=== PATIENT | female | born 1980 | race Caucasian/White ===

== ENCOUNTER → 2023-01-16 10:34 | Outpatient (CLI) | payer BC, SELFPAY ==
--- NOTE | ~2023-01-16 | MR_ITS ---
MRI of the left shoulder Technique: Axial proton-density fat-sat images, coronal proton density fat-sat and T2 fat-sat images, and sagittal T1-weighted and T2 fat-sat images were acquired. Clinical History: Pain Findings: No significant AC joint degenerative change present. Coracoclavicular, coracoacromial, and coracohumeral ligaments are intact. There is mild infiltration of subcoracoid fat. Supraspinatus and infraspinatus tendons are intact, without partial or full-thickness tear. Subscapul heather tendon is intact with mild tendinosis. Tendon of long head of the biceps is intact. Glenoid labrum is intact, without evidence of tear. There is thickening and increased signal of the inferior glenohumeral ligament. No effusion or degene rative change of the glenohumeral joint. No fluid distention of the subacromial/subdeltoid bursa. No muscle atrophy or edema. Impression: Findings suggestive of adhesive capsulitis. Mild subscapularis tendinosis. Reviewed, dictated and finalized at [facility]. Impression: Findings suggestive of adhesive capsulitis. Mild subscapularis tendinosis.
== END ==
PROVIDERS: PCP Physician Assistant; Visit Provider Nurse Practitioner
DX: M25.512 Pain in left shoulder (principal)
CPT/HCPCS: 73221

== ENCOUNTER 2023-05-22 09:25 | Outpatient (CLI) | payer BC, SELFPAY ==
--- NOTE | 2023-05-22 10:24 | ECG_ITS ---
Measurements Intervals [place] Rate: 85 P: 62 PA: 147 QRS: 63 QRSD: 86 T: 55 QT: 380 QTc: 452 Interpretive Statements SINUS RHYTHM NORMAL ECG NO PREVIOUS ECG AVAILABLE FOR COMPARISON Electronically Signed On 05-22-2023 10:44:14 CDT by Jairo Caldwell D.O.
[2023-05-22 10:41] LABS: Anion Gap 9 mmol/L (8-16); Blood Urea Nitrogen 17 mg/dL (7-17); Calcium 9.3 mg/dL (8.4-10.2); Carbon Dioxide 25 mmol/L (22-30); Chloride 107 mmol/L (98-107); Estimated Glomerular Filt Rate > 60; Glucose 103 mg/dL (65-110); Potassium 4.2 mmol/L (3.4-5.0); Sodium 141 mmol/L (137-145)
== END 2023-05-22 09:26 | disposition home or self-care (01) ==
PROVIDERS: PCP Physician Assistant; Visit Provider Anesthesiology
DX: E11.9 Type 2 diabetes mellitus without complications (principal)
CPT/HCPCS: 36415; 80048; 93005

== ENCOUNTER 2023-05-24 00:47 | Day surgery (SDC) | payer BC, SELFPAY ==
[2023-05-17 16:27] VITALS: BMI 20.5
--- NOTE | 2023-05-17 17:10 | PC.NURSE ---
Report to the Outpatient Waiting Room, entrance under the green pavilion located off [facility], at 1130 on 05-24-23. Planned Procedure Time: 1330. Time changes happen often and if your time is changed the preop area will call you the afternoon before. - You and your visitor will be asked to self-screen and do not enter if you have any COVID symptoms. - A mask is optional within the hospital at this time. Patients may have clear liquids (water, carbonated beverages, clear teas, apple juice) until 3 hours prior to surgery with a maximum of 20 ounces. 1030 - No food from midnight until time of surgery - Infants may have breast milk until 4 hours before surgery, formula 6 hours prior to surgery. - Children will be allowed to drink immediately following surgery. If applicable, please bring a bottle or sippy cup to assist with drinking. Juice, water, soda, and popsicles are readily available. For infants on formula, please bring formula the day of surgery. Pacifiers are allowed. Take the following medications with a SIP of water the morning of surgery: amlodipine, levothyroxine, control DO NOT STOP ANY OF YOUR OTHER PRESCRIPTION MEDICATIONS PRIOR TO SURGERY ?EXCEPT THE FOLLOWING Medications to discontinue per physician: N/A Please no make-up, nail faroese, hairspray, perfume, deodorant, or body powder the day of surgery. No jewelry (including any body piercings) or valuables the day of surgery, leave them at home. Please take a shower or bath the night before, or the morning of, surgery with an antibacterial soap. Wear comfortable, loose fitting clothing. Children are encouraged to wear pajamas. - Jewelry must be removed prior to entering the operating room. Rings and piercings that are not removed may be cut off. - The hospital will not accept responsibility for valuables. - Please leave all valuables, including medications, at home the day of surgery. If you are going home after surgery, a licensed lyft driver must drive you home. - NO public transportation without another adult if you receive anesthesia. - We recommend that an adult stay with you for 24 hours following discharge. - We also recommend that you do not drive, make important decision, drink alcoholic beverages, or take any drugs that were not prescribed by your health care provider for at least 24 hours after your discharge time. For Pediatric surgeries, we recommend two adults accompany the child home. Follow any additional instructions given to you from your surgeon. If you or anyone in your household have experienced Covid symptoms in the past week, please notify your surgeon or the nurse liaison at the phone number below for possible testing. Telephone instructions given to Luiza Yeh and asked if any additional questions and then verbalized understanding. Patient advised to call surgeon office or pre surgery nurse liaison [phone] if any additional questions.
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
[2023-05-24 11:38] VITALS: BP 118/81; PULSE 102; RESP 16; TEMP 37.1; O2SAT 100
== END 2023-05-24 11:40 | disposition home or self-care (01) ==
PROVIDERS: PCP Physician Assistant; Visit Provider Orthopaedic Surgery
DX: M75.02 Adhesive capsulitis of left shoulder (principal); Z53.8 Procedure and treatment not carried out for other reasons
CPT/HCPCS: 99212; A9270; G0463; J0690; J1885

== ENCOUNTER 2023-06-07 00:56 | Day surgery (SDC) | payer BC, SELFPAY ==
[2023-05-31 14:25] VITALS: BMI 20.1
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
[2023-06-07] VITALS (9 sets, daily range): BP systolic 92–126; BP diastolic 63–86; PULSE 87–99; RESP 10–20; TEMP 36.4–36.8; O2SAT 100
[2023-06-07] MEDS: ACETAMINOPHEN 500 MG TABLET 1000 MG PO (07:00)
[2023-06-07] MEDS: LACTATED RINGERS 1,000 ML 30 ML IV CONT (07:00)
[2023-06-07] MEDS: KETOROLAC 15 MG/ML VIAL (*BKC) IV PUSH ×2 (07:00→09:10)
--- NOTE | 2023-06-07 07:09 | WPDHPUPDATE1 ---
History and Physical Update Update Date/Time: 06/07/23 07:09 History and Physical has been reviewed, including an updated exam of the patient. There are NO changes in the patient's condition. Risks, benefits, and alternatives have been discussed and questions answered. Patient agrees to proceed with procedure.
[2023-06-07 07:14] LABS: Glucose Point of Care 104 mg/dl (65-105)
--- NOTE | 2023-06-07 07:21 | WPDANESEPPF ---
Anes - Initial Pre Proc Eval Procedure: Operation Date: 06/07/23 08:30 Proposed Procedures p Left Shoulder Examination Under Anesthesia with Injection - Dre Leyva MD Date/Time: 06/07/23 07:21 Surgeon: Dre Leyva MD Pre Op Diagnosis: Lt Frozen Shoulder Patient Data Age: 43 Gender: F Height: 1.57 m Weight: 50 kg Allergies Allergy/AdvReac Type Severity Reaction Status Date / Time codeine Allergy Mild headache, Verified 05/31/23 14:24 dizziness grass pollen Allergy Mild Hives Verified 05/31/23 14:24 Home Medications Medication Instructions Recorded Confirmed Type amlodipine 5 mg tablet 5 mg PO DAILY 02/10/23 05/31/23 History levothyroxine 13 mcg capsule 13 mcg PO DAILY 02/10/23 05/31/23 History norethindrone (contraceptive) 0.35 0.35 mg PO DAILY 02/10/23 05/31/23 History mg tablet tirzepatide 5 mg/0.5 mL 5 mg subcut WEEKLY 05/17/23 05/31/23 History subcutaneous pen injector (Mounjaro) Laboratory Tests 06/07/23 07:07 POC Capillary Glucose 104 mg/dl (65-105) Patient hx anesthesia problems: none Family hx anesthesia problems: none Results Review: All pre-operative results and documents have been reviewed as part of the pre-operative evaluation. [facility] Past Medical History Medical History Adhesive capsulitis of left shoulder Diabetes Heart murmur Raynauds disease Tachycardia Surgical History Surgical History History of oral surgery Family History Family History Mother Diabetes mellitus Hemochromatosis Father Diabetes mellitus Hypertension Grandparent Diabetes mellitus Lung cancer COPD (chronic obstructive pulmonary disease) Social History Social History Smoking status: Never smoker Alcohol intake: former Alcohol use details: NOVEMBER 2009 LAST USE Substance use: never Substance use type: does not use Lack of Transportation: No Lack of Food: Never True Current Housing: I Have Housing Concerned About Future Housing: No Difficulty Paying Gas/Electric Bills: No Difficulty Paying for Meds: No Currently Unemployed: No Education: Bachelor's Degree Difficulty w/ Childcare or Family Care: No Living arrangements: alone Occupation/Education: occupation 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 Informed Consent: The patient's anesthetic plan and its attendant risks and benefits were discussed with the patient/family/POA. Questions were solicited and answers provided to the satisfaction of the patient/family/POA.
[2023-06-07] MEDS: TRIAMCINOLONE ACET INJ SUSP 50 MG/5 ML VIAL IM (08:30)
[2023-06-07] MEDS: LIDOCAINE HCL 1% LOCAL INJ 10 ML VIAL 2 ML INFILTRATE (08:31)
--- NOTE | 2023-06-07 08:41 | W.PM.PROC2 ---
Procedure Note - Detailed Date of Procedure 06/07/23 Pre-op Diagnosis Lt Frozen Shoulder Post-op Diagnosis Same Procedure Performed Evaluation under anesthesia left shoulder with manipulation and intra-articular injection Surgeon Dre Leyva MD Anesthesia General Description of Procedure The patient was identified in proper site identified. She was taken to the operating room and left on the patient gurney. After general anesthetic induction the shoulder range of motion was evaluated. A gentle manipulation was carried out and post manipulation range is recorded. These are at the bottom of the note in degrees. Following the shoulder manipulation, the shoulder was injected intra-articularly with 2 milliliters 1% lidocaine and 20 milligrams of Kenalog without incident. It was applied. She tolerated procedure well. She was taken to recovery in stable condition. There were no known intraoperative complications. Pre Post Elevation 130 180 External rotation 30 90 Internal rotation 30 70 Estimated Blood Loss 0 Drains No Packing No Pathology Other (NA) Complications No immediate complications Condition Stable Disposition PACU [facility] Billing Surgery - Charge Forward: Surgery Billing ([id number]; [id number])
[2023-06-07 09:00] LABS: Glucose Point of Care 101 mg/dl (65-105)
[2023-06-07] MEDS: fentaNYL CITRATE INJ (*CRX) 100 MCG/2 ML VIAL 25 MCG IV PUSH ×3 (09:23→09:36)
[2023-06-07] MEDS: traMADol HCL (*CRX) 50 MG TABLET PO (10:27)
== END 2023-06-07 10:52 | disposition home or self-care (01) ==
PROVIDERS: Visit Provider Orthopaedic Surgery
PROC: (CPT 23700; principal; 2023-06-07 08:30)
DX: M75.02 Adhesive capsulitis of left shoulder (principal); E11.9 Type 2 diabetes mellitus without complications; I73.00 Raynaud's syndrome without gangrene
CPT/HCPCS: 23700; 82948; A9270; J0690; J1885; J2250; J3010; J3301; J7120

== ENCOUNTER 2023-09-27 07:42 | Outpatient (CLI) | payer BC, SELFPAY ==
--- NOTE | ~2023-09-27 | MR_ITS ---
EXAMINATION: MR shoulder LT wo con DATE: 09/27/2023 08:28 INDICATION: Adhesive capsulitis TECHNIQUE: Magnetic resonance imaging (MRI) of the left shoulder was performed without intravenous co ntrast. Sequences included axial PD-weighted FS FSE, coronal oblique PD-weighted FS FSE, coronal obli que T2-weighted FS FSE, sagittal PD-weighted FS FSE, and sagittal T1-weighted SE. COMPARISON: None. FINDINGS: Coracoacromial arch: The acromion undersurface is curved in morphology (type II). The coracoacromial ligament is normal. M ild acromioclavicular osteoarthritis. Rotator cuff: Mild supraspinatus and infraspinatus tendinopathy without discrete tear. Teres minor and subscapulari s tendons are normal. Normal rotator cuff muscle bulk and signal. Biceps tendon, glenoid labrum and glenohumeral cartilage: Long head of the biceps tendon is normal. Glenoid labrum is normal. Glenohumeral cartilage is normal. Fluid: Physiologic amount of fluid in the glenohumeral joint and biceps tendon sheath. No loose osteochondr al bodies. Mild increased fluid signal in the subacromial/subdeltoid bursa consistent with mild bursi tis. Bones: Normal marrow signal with no edema, fracture or abnormal marrow replacing process. IMPRESSION: 1. Mild supraspinatus and infraspinatus tendinopathy without tear. 2. Mild subacromial/subdeltoid bursitis. Reviewed, dictated and finalized at location B.
== END 2023-09-27 07:43 | disposition home or self-care (01) ==
PROVIDERS: PCP Physician Assistant; Visit Provider Physician Assistant Surgical
DX: M75.02 Adhesive capsulitis of left shoulder (principal)
CPT/HCPCS: 73221

== ENCOUNTER 2023-11-04 15:30 | Outpatient (CLI) | payer BC, SELFPAY ==
[2023-11-04 18:31] LABS: Anion Gap 10 mmol/L (4-12); Blood Urea Nitrogen 21 mg/dL (7-17); Calcium 9.8 mg/dL (8.4-10.2); Carbon Dioxide 24 mmol/L (22-30); Chloride 110 mmol/L (98-107); Estimated Glomerular Filt Rate > 60; Glucose 121 mg/dL (65-110); Potassium 3.8 mmol/L (3.4-5.0); Sodium 144 mmol/L (137-145)
== END 2023-11-04 15:31 | disposition home or self-care (01) ==
LOC: ANHLAB 15:31
PROVIDERS: PCP Physician Assistant; Visit Provider Anesthesiology
DX: Z01.818 Encounter for other preprocedural examination (principal); E11.9 Type 2 diabetes mellitus without complications
CPT/HCPCS: 36415; 80048

== ENCOUNTER 2023-11-11 00:13 | Day surgery (SDC) | payer BC, SELFPAY ==
[2023-11-03 15:25] VITALS: BMI 21.4
--- NOTE | 2023-11-03 15:33 | PC.NURSE ---
Report to the Outpatient Waiting Room, entrance under the green pavilion located off [facility], at time 10:30 on date 11/11/23. Planned Procedure Time: 12:30. Time changes happen often and if your time is changed the preop area will call you the afternoon before. - You and your visitor will be asked to self-screen and do not enter if you have any COVID symptoms. - A mask is optional within the hospital at this time. Patients may have clear liquids (water, carbonated beverages, clear teas, apple juice) until 3 hours prior to surgery (9:30) with a maximum of 20 ounces. - No food from midnight until time of surgery Take the following medications with a SIP of water the morning of surgery: AMLODIPINE, LEVOTHYROXINE, CONTRACEPTIVE DO NOT STOP ANY OF YOUR OTHER PRESCRIPTION MEDICATIONS PRIOR TO SURGERY ?EXCEPT THE FOLLOWING Medications to discontinue per physician: IBUPROFEN Date to take last dose: 11/03/23 Please no make-up, nail cambodian, hairspray, perfume, deodorant, or body powder the day of surgery. No jewelry (including any body piercings) or valuables the day of surgery, leave them at home. Please take a shower or bath the night before, or the morning of, surgery with an antibacterial soap. Wear comfortable, loose fitting clothing. - Jewelry must be removed prior to entering the operating room. Rings and piercings that are not removed may be cut off. - The hospital will not accept responsibility for valuables. - Please leave all valuables, including medications, at home the day of surgery. If you are going home after surgery, a licensed skip load driver must drive you home. - NO public transportation without another adult if you receive anesthesia. - We recommend that an adult stay with you for 24 hours following discharge. - We also recommend that you do not drive, make important decision, drink alcoholic beverages, or take any drugs that were not prescribed by your health care provider for at least 24 hours after your discharge time. Follow any additional instructions given to you from your surgeon. If you or anyone in your household have experienced Covid symptoms in the past week, please notify your surgeon or the nurse liaison at the phone number below for possible testing. Telephone instructions given to PT Adriano HAMPTON and asked if any additional questions and then verbalized understanding. Patient advised to call surgeon office or pre surgery nurse liaison [phone] if any additional questions.
[2023-11-11] VITALS (8 sets, daily range): BP systolic 118–137; BP diastolic 79–88; PULSE 88–101; RESP 9–20; TEMP 36.3–36.7; O2SAT 99–100
--- NOTE | 2023-11-11 10:32 | WPDHPUPDATE1 ---
History and Physical Update Update Date/Time: 11/11/23 10:32 History and Physical has been reviewed, including an updated exam of the patient. There are NO changes in the patient's condition. Risks, benefits, and alternatives have been discussed and questions answered. Patient agrees to proceed with procedure.
[2023-11-11] MEDS: ACETAMINOPHEN 500 MG TABLET 1000 MG PO (11:15)
[2023-11-11] MEDS: LACTATED RINGERS 1,000 ML 30 ML IV CONT ×2 (11:30→14:59)
[2023-11-11 11:38] LABS: Glucose Point of Care 96 mg/dl (65-105)
[2023-11-11] MEDS: KETOROLAC 15 MG/ML VIAL (*BKC) IV PUSH (12:02)
--- NOTE | 2023-11-11 12:04 | WPDANESEPPF ---
Anes - Initial Pre Proc Eval Procedure: Operation Date: 11/11/23 12:30 Proposed Procedures p Left Shoulder Arthroscopic Capsular Release - Jeet Poe MD Date/Time: 11/11/23 12:04 Surgeon: Jeet Poe MD Pre Op Diagnosis: L shoulder adhesive capsulitis Patient Data Age: 43 Gender: F Height: 1.57 m Weight: 52.6 kg Last Vital Signs Temp 98.1 F 11/11/23 11:57 Pulse 88 11/11/23 11:57 Resp 14 11/11/23 11:57 BP 118/79 11/11/23 11:57 Pulse Ox 100 11/11/23 11:57 O2 Del Method Room Air 11/11/23 11:57 Allergies Allergy/AdvReac Type Severity Reaction Status Date / Time grass pollen Allergy Mild Hives Verified 11/11/23 11:57 codeine AdvReac Mild headache, Verified 11/11/23 11:57 dizziness Home Medications Medication Instructions Recorded Confirmed Type amlodipine 5 mg tablet 5 mg PO DAILY 02/10/23 11/11/23 History levothyroxine 13 mcg capsule 13 mcg PO DAILY 02/10/23 11/11/23 History norethindrone (contraceptive) 0.35 0.35 mg PO DAILY 02/10/23 11/11/23 History mg tablet tirzepatide 5 mg/0.5 mL 5 mg subcut WEEKLY 05/17/23 11/11/23 History subcutaneous pen injector (Mounjaro) ibuprofen 800 mg tablet 800 mg PO TID #90 tabs 06/07/23 11/11/23 Rx fluticasone propionate 50 1 spray intranasal DAILY 09/29/23 11/11/23 History mcg/actuation nasal spray,suspension (Flonase Allergy Relief) loratadine 10 mg tablet (Allergy 10 mg PO DAILY 09/29/23 11/11/23 History Relief (loratadine)) omeprazole 20 mg capsule,delayed 20 mg PO DAILY 11/03/23 11/11/23 History release Laboratory Tests 11/11/23 11:35 POC Capillary Glucose 96 mg/dl (65-105) Patient hx anesthesia problems: other (Pt reports that w prev GA, she had 1-2 days post op where she has no recollection of events. ) Family hx anesthesia problems: none Results Review: All pre-operative results and documents have been reviewed as part of the pre-operative evaluation. [facility] Past Medical History Medical History Adhesive capsulitis of left shoulder Diabetes Heart murmur Raynauds disease Tachycardia Surgical History Surgical History History of oral surgery Family History Family History Mother Diabetes mellitus Hemochromatosis Father Diabetes mellitus Hypertension Grandparent Diabetes mellitus Lung cancer COPD (chronic obstructive pulmonary disease) Social History Social History Smoking status: Never smoker Alcohol intake: never Alcohol use details: NOVEMBER 2009 LAST USE Substance use: never Substance use type: does not use Lack of Transportation: No Lack of Food: Never True Current Housing: I Have Housing Concerned About Future Housing: No Difficulty Paying Gas/Electric Bills: No Difficulty Paying for Meds: No Currently Unemployed: No Education: Bachelor's Degree Difficulty w/ Childcare or Family Care: No Living arrangements: alone Occupation/Education: occupation 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 Informed Consent: The patient's anesthetic plan and its attendant risks and benefits were discussed with the patient/family/POA. Questions were s
[2023-11-11] MEDS: ceFAZolin 2 GM/D5W 50 ML 2 GM/50 ML BAG IVPB (13:32)
[2023-11-11] MEDS: EPINEPHrine HCL INJ 1 MG/ML AMPUL IRRIGATION (14:41)
[2023-11-11] MEDS: BUPIVACAINE/EPINEPHRINE 0.5% 30 ML VIAL 20 ML INFILTRATE (14:43)
--- NOTE | 2023-11-11 14:50 | P.OP_ITS ---
Procedure Note - Detailed Date of Procedure 11/11/23 Pre-op Diagnosis 1. Left shoulder adhesive capsulitis 2. Diabetes Post-op Diagnosis Same Procedure Performed Arthroscopic capsule release left shoulder. Surgeon Jeet Poe MD President And Cmo Chiquis Carter PA-C Anesthesia General Findings Significant capsular thickening. Inferior capsule anterior and posterior release including debridement of the rotator cuff interval. The radiofrequency hook was used. Particular care was taken in the axillary recess. Initial flexion 100? increased to 150. External rotation 30? increase to 70?. Internal rotation in abduction from 20? to 50?. Description of Procedure Preoperative antibiotics were given. An interscalene block was performed. The patient was brought to the operating room, and carefully placed in the beach chair position. The head neck were carefully positioned. Examination under anesthesia revealed moderate tightness of the shoulder with marked limitation in movement. Inspection revealed significant capsulitis. The articular cartilage was intact. The capsule was very thickened and tight. The labrum and biceps were intact. The rotator cuff appeared normal. An accessory anterosuperior cannula was created. The tissue resection device was used to remove the rotator interval tissue. The anterior and inferior capsule was released with the hook probe. The camera was switched to the anterior portal. The posterior capsule was then resected in a similar fashion. Particularly care was taken in the axillary pouch. The tips of the resector were always in view. At this point the glenohumeral articulation was much less stiff. The arthroscopic instruments were removed. Inspection in the subacromial bursa did not reveal any abnormal pathology or signs of impingement. Manipulation was then performed in the typical manner. Motion was greatly improved. The wounds were closed with interrupted 4-0 Monocryl suture followed by Steri-Strips. The patient was extubated and brought to recovery room in stable condition. There were no complications. Estimated Blood Loss 10 Drains No Packing No Pathology None sent Complications No immediate complications Condition Stable Disposition PACU [facility] Billing Surgery - Charge Forward: Surgery Billing
[2023-11-11 15:38] LABS: Glucose Point of Care 110 mg/dl (65-105)
[2023-11-11] MEDS: oxyCODONE HCL (*CRX) 5 MG TAB IR PO (15:38)
[2023-11-11] MEDS: IBUPROFEN 600 MG TABLET PO (16:47)
== END 2023-11-11 17:00 | disposition home or self-care (01) ==
PROVIDERS: PCP Physician Assistant; Visit Provider Orthopaedic Surgery
PROC: (CPT 29805; principal; 2023-11-11 12:30)
DX: M75.02 Adhesive capsulitis of left shoulder (principal); E11.9 Type 2 diabetes mellitus without complications; R01.1 Cardiac murmur, unspecified; I73.00 Raynaud's syndrome without gangrene; Z79.1 Long term (current) use of non-steroidal anti-inflammatories (NSAID); Z79.85 Long-term (current) use of injectable non-insulin antidiabetic drugs; Z98.890 Other specified postprocedural states; Z80.1 Family history of malignant neoplasm of trachea, bronchus and lung
CPT/HCPCS: 29825; 82948; A4565; A9270; J0171; J0690; J1885; J3010; J7120